=== PATIENT | female | born 1945 | race Caucasian/White ===

== ENCOUNTER 2020-07-24 07:21 | Emergency (ER) | payer MEDICARE, OTHER ==
[~2020-07-24] VITALS: Ht 157.5 cm; Wt 54.4 kg
[2020-07-24] MEDS ORDERED: LEVOTHYROXINE75 MC1 PO (07:32)
[2020-07-24] MEDS ORDERED: BIOTIN10000 MC1 PO (07:33)
[2020-07-24] MEDS ORDERED: GALZIN25 MG PO (07:33)
[2020-07-24] MEDS ORDERED: LIPITOR10 MG PO (07:33)
[2020-07-24] MEDS ORDERED: GLUCOSAMINE H1500 MG PO (07:33)
[2020-07-24] MEDS ORDERED: CELEXA 20 MG TA20 MG PO (07:33)
[2020-07-24] MEDS ORDERED: SUPER THERAVIT1 EACH PO (07:34)
[2020-07-24] MEDS ORDERED: FISH OIL 1,001000 M3 PO (07:34)
[2020-07-24 08:00] LABS: INFLUENZA A ANTIGEN Negative (Negative); INFLUENZA B ANTIGEN Negative (Negative)
[2020-07-24 08:03] LABS: URINE BLOOD 3+ (Negative); URINE CLARITY CLEAR; URINE COLOR YELLOW; URINE GLUCOSE-RANDOM NEGATIVE (Negative); URINE KETONES TRACE (Negative); URINE LEUKOCYTES 3+ (Negative); URINE NITRITE POSITIVE (Negative); URINE PROTEIN 2+ (Negative)
[2020-07-24 08:04] LABS: ICTOTEST (BILI CONFIRMATORY) Negative (Negative); URINE BILIRUBIN 1+ (Negative)
[2020-07-24 08:10] LABS: BACTERIA >30 Many /HPF (None Seen); CASTS None Seen /LPF (None Seen); CRYSTALS None Seen /LPF (None Seen); MUCUS None Seen strn/LPF (None Seen); RENAL EPITHELIAL CELLS 0-3 Few /LPF (None Seen); SQUAMOUS 0-3 Few /LPF (0-3); URINE RBC >20 Many /HPF (0-2); URINE WBC >25 Many /HPF (0-5)
[2020-07-24] MEDS ORDERED: KEFLEX750 MG PO (08:25)
[2020-07-24] MEDS ORDERED: PYRIDIUM200 M2 PO (08:25)
[2020-07-24 08:34] VITALS: BP 122/56
== END 2020-07-24 08:35 | disposition home or self-care (01) ==
LOC: M.ERS 07:21
PROVIDERS: Emergency Medicine
DX: N30.90 Cystitis, unspecified without hematuria (principal); Z88.5 Allergy status to narcotic agent; E03.9 Hypothyroidism, unspecified; E78.5 Hyperlipidemia, unspecified; E78.00 Pure hypercholesterolemia, unspecified